=== PATIENT | female | born 1990 | race Caucasian/White ===

== ENCOUNTER → 2020-03-26 | Outpatient (CLI) | payer OTHER | LOC: BHSO 10:56 | DX: F31.81 Bipolar II disorder (principal) ==

== ENCOUNTER → 2020-05-01 | Outpatient (CLI) | payer OTHER | LOC: BHSO 11:35 | DX: F43.10 Post-traumatic stress disorder, unspecified (principal) | CPT/HCPCS: G0463 ==

== ENCOUNTER → 2020-06-12 | Outpatient (CLI) | payer OTHER | LOC: BHSO 10:38 | DX: F43.10 Post-traumatic stress disorder, unspecified (principal) | CPT/HCPCS: G0463 ==